=== PATIENT | male | born 1975 | race Caucasian/White ===

== ENCOUNTER 2016-12-01 07:06 | Emergency (ER) | payer OTHER ==
[~2016-12-01] VITALS: Ht 167.6 cm; Wt 108.0 kg
[~2016-12-01 07:06] MED LIST: ASPIRIN325 MG PO; BACTRIM,SEPT1 TABLET PO; BACTROBAN NASAL1 G1 NS; CLEOCIN300 MG PO; CLINDAMYCIN HC300 MG PO; DIAZEPAM5 MG PO; ELAVIL10 MG PO; Ecotrin PO; FIORICET,ESG1 TABLET PO; FLEXERIL10 MG PO; LAMICTAL100 MG PO; MEDROL DOSEPAK4 MG PO; MELATONIN; MELATONIN5 M1 PO; MOBIC15 MG PO; MORPHINE SULFAT15 M1 PO; NAPROSYN500 MG PO; NATURAL COD LI1 EACH PO; NEURONTIN300 MG PO; NOHOMEMEDS; NORCO 5/3251 TABLET PO; NORTRIPTYLINE H10 MG PO; PERCOCET 5/31 TABLET PO; PREDNISONE; TOPAMAX; TOPIRAMATE50 MG PO; TORADOL10 MG PO; Tylenol Regular Stre PO; VALIUM5 MG PO; VIIBRYD20 MG PO; ZOFRAN4 MG PO; neurontin
[2016-12-01] MEDS ORDERED: FLEXERIL10 MG PO (08:13)
[2016-12-01] MEDS ORDERED: TYLENOL WITH C1 EACH PO (08:13)
[2016-12-01 08:25] VITALS: BP 134/98
== END 2016-12-01 08:35 | disposition home or self-care (01) ==
LOC: EME 07:06
DX: M54.12 Radiculopathy, cervical region (principal); M79.601 Pain in right arm; M79.1 Myalgia; J45.909 Unspecified asthma, uncomplicated; Z95.1 Presence of aortocoronary bypass graft; F17.200 Nicotine dependence, unspecified, uncomplicated; Z88.6 Allergy status to analgesic agent; Z88.8 Allergy status to other drugs, medicaments and biological substances
CPT/HCPCS: 72040; 99281; 99284

== ENCOUNTER 2016-12-17 13:09 | Day surgery (SDC) | payer OTHER ==
[~2016-12-17] VITALS: Ht 167.6 cm; Wt 104.3 kg
[~2016-12-17 13:09] MED LIST changes: +LORTAB 10-3251 EACH PO; +TYLENOL WITH C1 EACH PO
== END 2016-12-17 15:48 | disposition home or self-care (01) ==
LOC: PAIN 13:09 → SDC 14:00 → PAIN 14:00
PROC: 01513ZZ Destruction of Cervical Nerve, Percutaneous Approach (ICD-10-PCS; principal; 2016-12-17)
DX: M47.892 Other spondylosis, cervical region (principal); M50.20 Other cervical disc displacement, unspecified cervical region; F41.1 Generalized anxiety disorder; F17.200 Nicotine dependence, unspecified, uncomplicated; M54.81 Occipital neuralgia
CPT/HCPCS: J1030; J2250; J3010; S0020

== ENCOUNTER 2016-12-24 10:18 | Day surgery (SDC) | payer OTHER ==
[~2016-12-24] VITALS: Ht 167.6 cm; Wt 104.3 kg
[2016-12-24] MEDS ORDERED: TIZANIDINE HCL4 M1 PO (12:29)
== END 2016-12-24 13:55 | disposition home or self-care (01) ==
LOC: PAIN 10:18 → SDC 11:30 → PAIN 13:55
PROC: 01513ZZ Destruction of Cervical Nerve, Percutaneous Approach (ICD-10-PCS; principal; 2016-12-24)
DX: M47.892 Other spondylosis, cervical region (principal); M54.12 Radiculopathy, cervical region; F41.1 Generalized anxiety disorder; M50.223 Other cervical disc displacement at C6-C7 level; F17.200 Nicotine dependence, unspecified, uncomplicated; F43.10 Post-traumatic stress disorder, unspecified
CPT/HCPCS: J1030; J2250; J3010; S0020

== ENCOUNTER → 2017-03-20 | Outpatient (CLI) | payer OTHER ==
[~2017-03-20] MED LIST changes: +TIZANIDINE HCL4 M1 PO
== END | disposition home or self-care (01) ==
LOC: CDC 09:15
DX: Z01.810 Encounter for preprocedural cardiovascular examination (principal); M50.20 Other cervical disc displacement, unspecified cervical region; M54.12 Radiculopathy, cervical region; M48.9 Spondylopathy, unspecified; M54.2 Cervicalgia
CPT/HCPCS: 93000

== ENCOUNTER 2017-04-02 05:38 | Day surgery (SDC) | payer OTHER ==
[~2017-04-02] VITALS: Ht 167.6 cm; Wt 106.5 kg
[2017-04-02 06:05] VITALS: BP 124/86
[2017-04-02 11:34] VITALS: BP 152/92
[2017-04-02 12:41] VITALS: BP 160/83
== END 2017-04-02 13:03 | disposition home or self-care (01) ==
LOC: SDC 05:38
DX: M50.122 Cervical disc disorder at C5-C6 level with radiculopathy (principal); M50.13 Cervical disc disorder with radiculopathy, cervicothoracic region; M79.1 Myalgia; I10 Essential (primary) hypertension; G47.33 Obstructive sleep apnea (adult) (pediatric); M26.609 Unspecified temporomandibular joint disorder, unspecified side; F32.9 Major depressive disorder, single episode, unspecified; E66.01 Morbid (severe) obesity due to excess calories; Z68.38 Body mass index [BMI] 38.0-38.9, adult; F17.210 Nicotine dependence, cigarettes, uncomplicated; Z83.3 Family history of diabetes mellitus; Z82.49 Family history of ischemic heart disease and other diseases of the circulatory system; Z80.52 Family history of malignant neoplasm of bladder; Z79.891 Long term (current) use of opiate analgesic; Z88.2 Allergy status to sulfonamides; Z86.73 Personal history of transient ischemic attack (TIA), and cerebral infarction without residual deficits
CPT/HCPCS: 72020; 76000; C1713; J0131; J0330; J0690; J1100; J1170; J2250; J2405; J2710

== ENCOUNTER 2017-12-23 07:03 | Day surgery (SDC) | payer OTHER ==
[~2017-12-23] VITALS: Ht 167.6 cm; Wt 104.3 kg
[~2017-12-23 07:03] MED LIST changes: +CATAPRES-TTS 31 EACH TD; +KLONOPIN0.5 M1 PO; +LEXAPRO5 MG PO; +LIORESAL10 MG PO; -LORTAB 10-3251 EACH PO; +LORTAB 5-325 M1 EACH PO
== END 2017-12-23 08:45 | disposition home or self-care (01) ==
LOC: PAIN 07:03 → SDC 07:30 → PAIN 07:30
PROC: BR141ZZ Fluoroscopy of Cervical Facet Joint(s) using Low Osmolar Contrast (ICD-10-PCS; principal; 2017-12-23)
PROC: 3E0T3TZ Introduction of Destructive Agent into Peripheral Nerves and Plexi, Percutaneous Approach (ICD-10-PCS; principal; 2017-12-23)
DX: M47.812 Spondylosis without myelopathy or radiculopathy, cervical region (principal); M50.11 Cervical disc disorder with radiculopathy, high cervical region; M54.81 Occipital neuralgia; G89.29 Other chronic pain; M79.1 Myalgia; I10 Essential (primary) hypertension; F17.200 Nicotine dependence, unspecified, uncomplicated; Z79.891 Long term (current) use of opiate analgesic; Z88.2 Allergy status to sulfonamides; Z86.73 Personal history of transient ischemic attack (TIA), and cerebral infarction without residual deficits
CPT/HCPCS: J1030; J2250; J3010; S0020

== ENCOUNTER 2017-12-30 07:06 | Day surgery (SDC) | payer OTHER ==
[~2017-12-30] VITALS: Ht 167.6 cm; Wt 104.3 kg
== END 2017-12-30 08:55 | disposition home or self-care (01) ==
LOC: PAIN 07:06 → SDC 07:30 → PAIN 08:55
PROC: BR141ZZ Fluoroscopy of Cervical Facet Joint(s) using Low Osmolar Contrast (ICD-10-PCS; principal; 2017-12-30)
PROC: 3E0T3TZ Introduction of Destructive Agent into Peripheral Nerves and Plexi, Percutaneous Approach (ICD-10-PCS; principal; 2017-12-30)
DX: M47.812 Spondylosis without myelopathy or radiculopathy, cervical region (principal); M54.12 Radiculopathy, cervical region; M50.20 Other cervical disc displacement, unspecified cervical region; M50.223 Other cervical disc displacement at C6-C7 level; M54.81 Occipital neuralgia; G89.29 Other chronic pain; F32.9 Major depressive disorder, single episode, unspecified; M79.1 Myalgia; Z86.73 Personal history of transient ischemic attack (TIA), and cerebral infarction without residual deficits; F17.200 Nicotine dependence, unspecified, uncomplicated
CPT/HCPCS: J1030; J2250; J3010; S0020